=== PATIENT | male | born 1955 | race Caucasian/White ===

== ENCOUNTER 2019-06-25 16:57 | Emergency (ER) | payer OTHER ==
[2019-06-25] MEDS ORDERED: Ketorolac 60 MG/2 ML SDV IM ONE (17:19)
--- NOTE | 2019-06-25 17:24 | EDM.PDOC ---
ED HPI GENERAL MEDICAL PROBLEM - General Chief Complaint: Flank Pain Stated Complaint: BACK PAIN Time Seen by Provider: 06/25/19 16:58 Source of Information: Reports: Patient History Limitations: Reports: No Limitations - History of Present Illness INITIAL COMMENTS - FREE TEXT/NARRATIVE: HISTORY AND PHYSICAL: History of present illness: Patient is a 63-year-old male presents to the ED today with concern of low to mid back pain exacerbated over the last day. Patient states he's been having the pain over the past couple months but over the past day it has become worse. Patient denies any trauma or injury to his back. 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 Patient denies any loss or retention of bowel and bladder function or saddle anesthesia. Patient denies any other symptoms or concerns. Patient denies fever, chills, chest pain, shortness of breath, or cough. Denies headache, neck stiff ness, change in vision, syncope, or near syncope. Denies nausea, vomiting, abdominal pain, diarrhea, constipation, or dysuria. Has not noted any blood in urine or stool. Patient has been eating and drinking appropriately. Review of systems: As per history of present illness and below otherwise all systems reviewed and negative. Past medical history: As per history of present illness and as reviewed below otherwise noncontributory. Surgical history: As per history of present illness and as reviewed below otherwise noncontributory. Social history: See social history for further information Family history: As per history of present illness and as reviewed below otherwise noncontributory. Physical exam: General: Patient is alert, oriented, and in no acute distress. Patient sitting comfortably on exam table. HEENT: Atraumatic, normocephalic, pupils equal and reactive bilaterally, negative for conjunctival pallor or scleral icterus, mucous membranes moist, TMs normal bilaterally, throat clear, neck supple, nontender, trachea midline. No drooling or trismus noted. No meningeal signs. No hot potato voice noted. Lungs: Clear to auscultation, breath sounds equal bilaterally, chest nontender. Heart: S1S2, regular rate and rhythm without overt murmur Abdomen: Soft, nondistended, nontender. Negative for masses or hepatosplenomegaly. Negative for costovertebral tenderness. Pelvis: Stable nontender. Genitourinary: Deferred. Rectal: Deferred. Skin: Intact, warm, dry. No lesions or rashes noted. Extremities: Atraumatic, negative for cords or calf pain. Neurovascular unremarkable. SLR intact bilaterally. Heel/Toe gait intact bilaterally. No obvious deformity of the complete spine. No step-offs, crepitus, or point tenderness of the spinous process of complete spine. Patient does have mild pain with palpation of the paraspinous muscles of the thoracic and lumbar area. Patellar reflex intact bilaterally. Neuro: Awake, alert, oriented. Cranial nerves II through XII unremarkable. Cerebellum unremarkable. Motor and sensory unremarkable throughout. Exam nonfocal. Notes: Discussed the importance for follow-up with a primary care provider. Voices understanding and is agreeable to plan of care. Denies any further questions or concerns at this time. Diagnostics: lumbar XR, thoracic XR, UA Therapeutics: Toradol Prescription: Diclofenac, Flexeril Impression: Thoracolumbar back pain Plan: 1. Rest, ice and or heat the affected area. You can apply ice and or heat 15 minutes on, 15 minutes off. 2. Tylenol as directed for pain management or discomfort. Take medication as prescribed. 3. Follow up with the primary care provider as discussed. Return to the ED as needed and as discussed. Definitive disposition and diagnosis as appropriate pending reevaluation and review of above. low back Pain Score (Numeric/FACES): 6 - Related Data Allergies Allergy/AdvReac Type Severity Reaction Status Date / Time No Known Allergies Allergy Verified 06/25/19 17:10 Home Meds: Home Meds Fish Oil/[place]-3 Fatty Acids [Fish Oil 1,000 MG] 1 tab PO DAILY 09/30/16 [ History] Multivitamin [Multivitamins] 1 tab PO DAILY 09/30/16 [History] Past Medical History - Past Health History Medical/Surgical History: Denies Medical/Surgical History HEENT History: Reports: None Cardiovascular History: Reports: None Respiratory History: Reports: Sleep Apnea Other Respiratory History: uses CPAP Gastrointestinal History: Reports: GERD (occ.) Genitourinary History: Reports: None Musculoskeletal History: Reports: None Neurological History: Reports: None Psychiatric History: Reports: None Endocrine/Metabolic History: Reports: Obesity/BMI 30+ Hematologic History: Reports: None Immunologic History: Reports: None Oncologic (Cancer) History: Reports: Prostate Dermatologic History: Reports: None - Infectious Disease History Infectious Disease History: Reports: None - Past Surgical History Head Surgeries/Procedures: Reports: None GI Surgical History: Reports: Colonoscopy, Hernia Repair/Other Male Surgical History: Reports: Prostate Biopsy, Prostatectomy Other Male Surgeries/Procedures: hx prostate surgery for cancer Social & Family History - Family History Family Medical History: Noncontributory - Tobacco Use Smoking Status *Q: Never Smoker - Recreational Drug Use Recreational Drug Use: No ED ROS GENERAL - Review of Systems Review Of Systems: ROS reveals no pertinent complaints other than HPI. ED EXAM, GENERAL - Physical Exam Exam: See Below (see Dictation) Course - Vital Signs Last Recorded V/S: Last Vital Signs Temp 96.9 F 06/25/19 17:08 Pulse 90 06/25/19 17:08 Resp 20 06/25/19 17:08 BP 122/80 06/25/19 17:08 Pulse Ox 95 06/25/19 17:08 - Orders/Labs/Meds Labs: Laboratory Tests 06/25/19 Range/Units 17:10 Urine Color YELLOW Urine Appearance CLEAR Urine pH 5.5 (5.0-8.0) Ur Specific [place] 1.010 (1.001-1.035) Urine Protein NEGATIVE (NEGATIVE) mg/dL Urine Glucose (UA) NEGATIVE (NEGATIVE) mg/dL Urine Ketones NEGATIVE (NEGATIVE) mg/dL Urine Occult Blood NEGATIVE (NEGATIVE) Urine Nitrite NEGATIVE (NEGATIVE) Urine Bilirubin NEGATIVE (NEGATIVE) Urine Urobilinogen 0.2 (<2.0) EU/dL Ur Leukocyte Esterase NEGATIVE (NEGATIVE) Meds: Medications Discontinued Medications Generic Name Dose Route Start Last Admin Trade Name Germánq PRN Reason Stop Dose Admin Ketorolac Tromethamine 60 mg 06/25/19 17:19 06/25/19 17:25 Toradol IM 06/25/19 17:20 60 mg ONETIME ONE Administration Departure - Departure Time of Disposition: 18:27 Disposition: Home, Self-Care 01 Clinical Impression: Thoracolumbar back pain - Discharge Information Referrals: PCP,None [Primary Care Provider] - Forms: ED Department Discharge Additional Instructions: The following information is given to patients seen in the emergency department who are being discharged to home. This information is to outline your options for follow-up care. We provide all patients seen in our emergency department with a follow-up referral. The need for follow-up, as well as the timing and circumstances, are variable depending upon the specifics of your emergency department visit. If you don't have a primary care physician on staff, we will provide you with a referral. We always advise you to contact your personal physician following an emergency department visit to inform them of the circumstance of the visit and for follow-up with them and/or the need for any referrals to a consulting specialist. The emergency department will also refer you to a specialist when appropriate. This referral assures that you have the opportunity for follow-up care with a specialist. All of these measure are taken in an effort to provide you with optimal care, which includes your follow-up. Under all circumstances we always encourage you to contact your private physician who remains a resource for coordinating your care. When calling for follow-up care, please make the office aware that this follow-up is from your recent emergency room visit. If for any reason you are refused follow-up, please contact the [facility] Emergency Department at and asked to speak to the emergency department charge nurse. [facility] [address] [place] [id number] [address] 1. Rest, ice and or heat the affected area. You can apply ice and or heat 15 minutes on, 15 minutes off. 2. Tylenol as directed for pain management or discomfort. Take medication as prescribed. 3. Follow up with the primary care provider as discussed. Return to the ED as needed and as discussed.
--- NOTE | 2019-06-25 18:18 | CR ---
Indication: Mid to low back pain. No known injury. Technique: Three views of the thoracic spine were obtained. Comparison: None Findings: Degenerative changes of the thoracic spine are identified. Mild compression of T11 and to a lesser extent T12 are identified. No other fractures are identified. Impression: Mild compression of T11 and T12, of uncertain chronicity. Dictated by Miladys Mari MD @ Jun 25 2019 6:15PM Signed by Dr. Miladys Mari @ Jun 25 2019 6:16PM
--- NOTE | 2019-06-25 18:18 | CR ---
Indication: Mid to low back pain. Technique: Three views of the thoracic spine were obtained. Comparison: None Findings: Mild compression of T11 and T12 are identified. Into the lumbar spine is within normal limits. The vertebral body heights of the lumbar spine are normal. Intervertebral disc space narrowing is identified at L4-L5 and L5-S1. Facet joint arthropathy of the lower lumbar spine is identified. Impression: Compression of T11 and T12. Degenerative change. Dictated by Miladys Mari MD @ Jun 25 2019 6:16PM Signed by Dr. Miladys Mari @ Jun 25 2019 6:17PM
[2019-06-25 18:31] VITALS: BP 114/77; PULSE 78
== END 2019-06-25 18:35 | disposition home or self-care (01) ==
LOC: MW.ED 16:57
DX: M54.6 Pain in thoracic spine (principal); M54.5 Low back pain
CPT/HCPCS: 72072; 72100; 81003; 96372; 99283; J1885